=== PATIENT | female | born 1980 | race Caucasian/White ===

== ENCOUNTER 2019-08-06 23:29 | Inpatient (IN) ==
[2019-08-06 21:58] LABS: Basophils % 0.2 %; Eosinophils # 0.1 K/mcL (0.0-0.6); Eosinophils % 0.5 %; Hematocrit 37.2 % (35.3-44.9); Immature Granulocytes % 0.7 % (0-4); Lymphocytes # 1.4 K/mcL (0.6-4.6); Lymphocytes % 11.2 %; Mean Corpuscular HGB Conc 34.9 g/dL (31.6-35.5); Mean Corpuscular Hemoglobin 30.6 pg (28.0-33.3); Mean Corpuscular Volume 87.5 fL (83.0-100.0); Mean Platelet Volume 11.3 fL (9.4-12.4); Monocytes % 7.9 %; Neutrophils # 9.6 K/mcL (1.6-8.9); Platelet Count 208 K/mcL (140-400); Red Blood Count 4.25 M/mcL (3.82-4.97); Red Cell Distribution Width 13.3 % (11.5-14.5); Segmented Neutrophils % 79.5 %; White Blood Count 12.1 K/mcL (4.3-11.1)
[2019-08-06 22:08] LABS: Amphetamine Screen,Urine Negative ng/mL (Cutoff=1000); Barbiturate Screen,Urine Negative ng/mL (Cutoff=200); Benzodiazepines Screen,Urine Negative ng/mL (Cutoff=200); Cannabinoid Screen,Urine Negative ng/mL (Cutoff = 50); Cocaine Screen,Urine Negative ng/mL (Cutoff= 300); Opiate Screen,Urine Negative ng/mL (Cutoff=300); Phencyclidine Screen,Urine Negative ng/mL (Cutoff=25)
[~2019-08-06 23:29] MED LIST: *HR* FentaNYL (PF) 100 MCG/2 ML VIAL EP ONE; *HR* Nalbuphine 10 MG/ML AMPUL IVP PRN; EPHEDrine 50 MG/ML VIAL IVP PRN; Epidural Premix (fent/bupiv) 110 ML EP ONE; Famotidine 20 MG/2 ML VIAL IVP PRN; Metoclopramide 10 MG/2 ML VIAL IVP PRN; Naloxone 0.4 MG/ML INJ IVP PRN; Ondansetron 4 MG/2 ML VIAL IVP PRN; Ringers Solution, Lactated 1,000 ML IVC SCH; Ringers Solution, Lactated 1,000 ML ONE; Ropivacaine/PF 0.2% 20 ML VIAL EP ONE
[2019-08-06] MEDS: Epidural Premix (fent/bupiv) 110 ML EP SCH (23:50)
[2019-08-07] MEDS: Epidural Premix (fent/bupiv) 110 ML EP SCH ×2 (04:35→08:54)
[2019-08-07] MEDS ORDERED: Oxytocin 20 units/ LR 1000 mL 20 UNIT/1,000 ML BAG IVC SCH ×2 (05:45→12:42)
[2019-08-07] MEDS ORDERED: Ropivacaine/PF 0.2% 20 ML VIAL ONE (08:17)
[2019-08-07] MEDS ORDERED: Oxytocin 20 units/ LR 1000 mL 20 UNIT/1,000 ML BAG IVC ONE (12:42)
[2019-08-07] MEDS ORDERED: Benzocaine/Menthol 56 GM AEROSOL SPRAY TP PRN (12:42)
[2019-08-07] MEDS ORDERED: Acetaminophen 325 MG TABLET PO PRN (12:42)
[2019-08-07] MEDS ORDERED: Rho Immune Globulin 1,500 UNIT SYRINGE IM PRN (12:42)
[2019-08-07] MEDS ORDERED: Lanolin 7 G OINT...G. TP PRN (12:42)
[2019-08-07] MEDS ORDERED: Measles/Mumps/Rubella Vacc 0.5 ML VIAL SQ PRN (12:42)
[2019-08-07] MEDS: Ibuprofen 600 MG TABLET PO PRN ×2 (15:18→22:43)
[2019-08-08 07:19] LABS: Basophils % 0.2 %; Eosinophils # 0.2 K/mcL (0.0-0.6); Hematocrit 26.7 % (35.3-44.9); Immature Granulocytes % 0.4 % (0-4); Lymphocytes # 1.6 K/mcL (0.6-4.6); Mean Corpuscular Hemoglobin 30.6 pg (28.0-33.3); Mean Corpuscular Volume 92.7 fL (83.0-100.0); Mean Platelet Volume 11.3 fL (9.4-12.4); Monocytes # 1.5 K/mcL (0.0-1.3); Monocytes % 10.1 %; Neutrophils # 11.4 K/mcL (1.6-8.9); Platelet Count 159 K/mcL (140-400); Red Blood Count 2.88 M/mcL (3.82-4.97); Red Cell Distribution Width 13.5 % (11.5-14.5); Segmented Neutrophils % 77.3 %; White Blood Count 14.8 K/mcL (4.3-11.1)
[2019-08-08 07:22] LABS: Hemoglobin 8.8 g/dL (11.5-15.4)
[2019-08-08] MEDS: Ibuprofen 600 MG TABLET PO PRN (07:46)
[2019-08-08 08:01] VITALS: BP 107/55
[2019-08-08] MEDS ORDERED: Prenatal Vit/FA 1 EACH TABLET PO SCH (09:00)
== END 2019-08-08 13:30 | disposition home or self-care (01) | DRG 806 ==
LOC: 1NENULAB → 1NENUOBS 08-07 14:32
PROVIDERS: ADMIT Advanced Practice Midwife; ATTEND Advanced Practice Midwife

== ENCOUNTER 2021-09-24 17:37 | Inpatient (IN) ==
[~2021-09-24 17:37] MED LIST changes: -*HR* FentaNYL (PF) 100 MCG/2 ML VIAL EP ONE; +*HR* Nalbuphine 10 MG/ML AMPUL IV PRN; -*HR* Nalbuphine 10 MG/ML AMPUL IVP PRN; -EPHEDrine 50 MG/ML VIAL IVP PRN; -Epidural Premix (fent/bupiv) 110 ML EP ONE; +Methylergonovine 0.2 MG/ML AMPUL IM ONE; -Metoclopramide 10 MG/2 ML VIAL IVP PRN; -Ondansetron 4 MG/2 ML VIAL IVP PRN; -Ringers Solution, Lactated 1,000 ML IVC SCH; -Ringers Solution, Lactated 1,000 ML ONE; -Ropivacaine/PF 0.2% 20 ML VIAL EP ONE
[2021-09-24] MEDS ORDERED: *HR* FentaNYL (PF) 100 MCG/2 ML VIAL EP ONE (18:14)
[2021-09-24] MEDS ORDERED: Ropivacaine/PF 0.2% 20 ML VIAL EP ONE (18:14)
[2021-09-24] MEDS ORDERED: EPHEDrine 50 MG/ML VIAL IVP PRN (18:14)
[2021-09-24] MEDS ORDERED: Epidural Premix (fent/bupiv) 110 ML EP SCH (18:15)
[2021-09-24 18:17] LABS: Basophils % 0.5 %; Eosinophils % 0.5 %; Hematocrit 38.6 % (35.3-44.9); Hemoglobin 13.5 g/dL (11.5-15.4); Lymphocytes # 1.5 K/mcL (0.6-4.6); Lymphocytes % 19.2 %; Mean Corpuscular Hemoglobin 32.3 pg (28.0-33.3); Mean Corpuscular Volume 92.3 fL (83.0-100.0); Mean Platelet Volume 10.3 fL (9.4-12.4); Monocytes # 0.7 K/mcL (0.0-1.3); Monocytes % 8.3 %; Neutrophils # 5.5 K/mcL (1.6-8.9); Platelet Count 142 K/mcL (140-400); Red Blood Count 4.18 M/mcL (3.82-4.97); Red Cell Distribution Width 14.1 % (11.5-14.5); Segmented Neutrophils % 70.5 %; White Blood Count 7.9 K/mcL (4.3-11.1)
[2021-09-24 18:23] LABS: Amphetamine Screen,Urine Negative ng/mL (Cutoff=1000); Barbiturate Screen,Urine Negative ng/mL (Cutoff=200); Benzodiazepines Screen,Urine Negative ng/mL (Cutoff=200); Cannabinoid Screen,Urine Negative ng/mL (Cutoff = 50); Cocaine Screen,Urine Negative ng/mL (Cutoff= 300); Opiate Screen,Urine Negative ng/mL (Cutoff=300); Phencyclidine Screen,Urine Negative ng/mL (Cutoff=25)
[2021-09-24] MEDS: Ringers Solution, Lactated 1,000 ML IVC SCH ×2 (18:31→21:40)
[2021-09-24] MEDS ORDERED: Ropivacaine/PF 0.2% 20 ML VIAL ONE (18:44)
[2021-09-24] MEDS ORDERED: *HR* FentaNYL (PF) 100 MCG/2 ML VIAL ONE (18:44)
[2021-09-24] MEDS ORDERED: Oxytocin 20 units/ LR 1000 mL 20 UNIT/1,000 ML BAG IVC ONE (23:06)
[2021-09-25] MEDS ORDERED: Oxytocin 20 units/ LR 1000 mL 20 UNIT/1,000 ML BAG IVC SCH (01:16)
[2021-09-25] MEDS ORDERED: Ondansetron ODT 4 MG TAB.RAPDIS SL PRN (01:16)
[2021-09-25] MEDS ORDERED: Oxytocin 20 units/ LR 1000 mL 20 UNIT/1,000 ML BAG IVC ONE (01:56)
[2021-09-25] MEDS: Ibuprofen 600 MG TABLET PO SCH ×3 (03:20→17:32)
[2021-09-25] MEDS: Acetaminophen 325 MG TABLET PO SCH ×3 (03:21→17:32)
[2021-09-25] MEDS: Benzocaine/Menthol 56 GM AEROSOL SPRAY TP PRN ×2 (03:21→08:53)
[2021-09-25] MEDS: Lanolin 7 G OINT...G. TP PRN ×2 (03:21→08:53)
[2021-09-25 05:09] VITALS: O2SAT 97
[2021-09-25 05:30] LABS: Basophils % 0.3 %; Eosinophils % 0.2 %; Immature Granulocytes % 0.4 % (0-4); Lymphocytes # 1.3 K/mcL (0.6-4.6); Lymphocytes % 11.8 %; Mean Corpuscular HGB Conc 34.8 g/dL (31.6-35.5); Mean Corpuscular Hemoglobin 32.1 pg (28.0-33.3); Mean Corpuscular Volume 92.1 fL (83.0-100.0); Mean Platelet Volume 10.6 fL (9.4-12.4); Neutrophils # 8.9 K/mcL (1.6-8.9); Platelet Count 129 K/mcL (140-400); Red Blood Count 3.15 M/mcL (3.82-4.97); Red Cell Distribution Width 14.3 % (11.5-14.5); Segmented Neutrophils % 78.3 %; White Blood Count 11.3 K/mcL (4.3-11.1)
[2021-09-25 05:39] LABS: Hemoglobin 10.1 g/dL (11.5-15.4)
[2021-09-25] MEDS: Prenatal Vit/FA 1 EACH TABLET PO SCH (08:52)
[2021-09-25 22:42] VITALS: PULSE 78
[2021-09-26] MEDS: Ibuprofen 600 MG TABLET PO SCH (04:57)
[2021-09-26 07:41] VITALS: BP 114/72; TEMP 98.2
[2021-09-26] MEDS: Prenatal Vit/FA 1 EACH TABLET PO SCH (07:42)
[2021-09-26] MEDS: Acetaminophen 325 MG TABLET PO SCH (07:42)
== END 2021-09-26 11:15 | disposition home or self-care (01) | DRG 806 ==
LOC: 1NENULAB → 1NENUOBS 09-25 02:13
PROVIDERS: ADMIT Student in an Organized Health Care Education/Training Program; ATTEND Student in an Organized Health Care Education/Training Program